=== PATIENT | female | born 1945 | race Caucasian/White ===

== ENCOUNTER 2018-07-12 10:17 | Inpatient (IN) | payer MEDICARE, OTHER ==
[~2018-07-12] VITALS: Ht 162.6 cm; Wt 59.9 kg
[2018-07-12] VITALS (16 sets, daily range): BP systolic 97–133; BP diastolic 39–67
[2018-07-12] MEDS ORDERED: IV NS 0.9% 500 ML BAG IV ONE (10:30)
[2018-07-12] MEDS ORDERED: ONDANSETRON HCL/PF 4 MG/2 ML VIAL IVP ONE (10:30)
[2018-07-12] MEDS ORDERED: MECLIZINE HCL 12.5 MG TABLET PO ONE (10:30)
[2018-07-12] MEDS ORDERED: ONDANSETRON HCL/PF 4 MG/2 ML VIAL ONE (10:36)
[2018-07-12] MEDS ORDERED: MECLIZINE HCL 25 MG TABLET ONE (10:36)
[2018-07-12 11:09] LABS: BASOPHILS % (AUTO) 0.1 % (0.0-2.0); EOSINOPHILS % (AUTO) 0.2 % (0.0-6.0); HEMATOCRIT 42 % (33-45); HEMOGLOBIN 13.6 g/dL (11.5-14.8); LYMPHOCYTES # (AUTO) 0.8 /CMM (0.8-4.8); LYMPHOCYTES % (AUTO) 7.7 % (20.0-44.0); MEAN CORPUSCULAR HEMOGLOBIN 29 PG (26.0-33.0); MEAN CORPUSCULAR HGB CONC 33 g/dl (31.0-36.0); MEAN CORPUSCULAR VOLUME 88 fL (82-100); MONOCYTES # (AUTO) 0.4 /CMM (0.1-1.30); MONOCYTES % (AUTO) 4.1 % (2.0-12.0); NEUTROPHILS # (AUTO) 8.8 /CMM (1.8-8.9); NEUTROPHILS % (AUTO) 87.9 % (43.0-81.0); PLATELET COUNT (AUTO) 246 /CMM (150-450); RDW COEFFICIENT OF VARIATION 14.5 (11.5-15.0); RED BLOOD CELL COUNT(AUTO) 4.78 MIL/uL (4.0-5.2)
[2018-07-12] MEDS ORDERED: LEVETIRACETAM (500MG) 500 MG in IV NS 0.9% 100 ML IV SCH (11:30)
[2018-07-12 11:52] LABS: TROPONIN I < 0.017 ng/mL (0.00-0.056)
[2018-07-12 11:55] LABS: CALCIUM, SERUM 9.5 mg/dL (8.5-10.1); CARBON DIOXIDE 30 mmol/L (21-32); CHLORIDE 94 mmol/L (98-107); CREATININE 0.6 mg/dL (0.6-1.3); GLUCOSE 144 mg/dL (74-106); POTASSIUM 4.1 mmol/L (3.5-5.1); SODIUM SERUM 130 mmol/L (136-145); UREA NITROGEN, BLOOD 11 mg/dL (7-18)
[2018-07-12 11:59] LABS: ALANINE AMINOTRANSFERASE 18 U/L (12-78); ALBUMIN 3.8 g/dL (3.4-5.0); ALKALINE PHOSPHATASE 65 U/L (46-116); ASPARTATE AMINOTRANSFERASE 25 U/L (15-37); BILIRUBIN,DIRECT 0.1 mg/dL (0.0-0.2); BILIRUBIN,TOTAL 0.6 mg/dL (0.2-1.0)
[2018-07-12] MEDS ORDERED: DESMOPRESSIN IV ONE (12:00)
[2018-07-12] MEDS ORDERED: NS 0.9% IV ONE (12:00)
[2018-07-12] MEDS ORDERED: ESOM40CA PO (12:38)
[2018-07-12] MEDS ORDERED: ATEN25TA PO (12:38)
[2018-07-12] MEDS ORDERED: SIMV5TAB6 PO (12:38)
[2018-07-12] MEDS ORDERED: AMLO5TAB2 PO (12:38)
[2018-07-12] MEDS ORDERED: ACETAMINOPHEN 325 MG TABLET PO PRN (13:00)
[2018-07-12] MEDS ORDERED: ONDANSETRON HCL/PF 4 MG/2 ML VIAL IVP PRN (13:00)
[2018-07-12] MEDS ORDERED: MAG HYDROX/AL HYDROX/SIMETH 30 ML UDC PO PRN (13:00)
[2018-07-12] MEDS ORDERED: HYDROCODONE/APAP 5/325MG 1 EACH TABLET PO PRN (13:00)
[2018-07-12] MEDS ORDERED: MAGNESIUM HYDROXIDE 30 ML UDC PO PRN (13:00)
[2018-07-12] MEDS ORDERED: MORPHINE SULFATE INJ 2 MG/ML DISP.SYRIN IV PRN (13:00)
[2018-07-12] MEDS ORDERED: ZOLPIDEM TARTRATE 5 MG TABLET PO PRN (13:00)
[2018-07-12] MEDS ORDERED: Z GUARD REMEDY 2 OZ OINT TP PRN (13:00)
[2018-07-12] MEDS ORDERED: hydrALAZINE HCL IV 20 MG VIAL IV PRN (14:00)
[2018-07-12] MEDS ORDERED: LEVETIRACETAM (500MG) 500 MG/5 ML VIAL IV ONE (23:45)
[2018-07-12] MEDS: LEVETIRACETAM (500MG) 500 MG in IV NS 0.9% 100 ML IV SCH (23:50)
[2018-07-13] VITALS (41 sets, daily range): BP systolic 91–157; BP diastolic 40–100
[2018-07-13 04:25] LABS: BASOPHILS % (AUTO) 0.2 % (0.0-2.0); EOSINOPHILS % (AUTO) 1.2 % (0.0-6.0); HEMATOCRIT 36 % (33-45); HEMOGLOBIN 11.6 g/dL (11.5-14.8); LYMPHOCYTES # (AUTO) 1.4 /CMM (0.8-4.8); LYMPHOCYTES % (AUTO) 11.5 % (20.0-44.0); MEAN CORPUSCULAR HEMOGLOBIN 29 PG (26.0-33.0); MEAN CORPUSCULAR HGB CONC 33 g/dl (31.0-36.0); MEAN CORPUSCULAR VOLUME 88 fL (82-100); MONOCYTES # (AUTO) 0.7 /CMM (0.1-1.30); MONOCYTES % (AUTO) 5.8 % (2.0-12.0); NEUTROPHILS # (AUTO) 9.7 /CMM (1.8-8.9); NEUTROPHILS % (AUTO) 81.3 % (43.0-81.0); PLATELET COUNT (AUTO) 232 /CMM (150-450); RDW COEFFICIENT OF VARIATION 14.2 (11.5-15.0); RED BLOOD CELL COUNT(AUTO) 4.03 MIL/uL (4.0-5.2)
[2018-07-13 04:42] LABS: CARBON DIOXIDE 31 mmol/L (21-32); CHLORIDE 96 mmol/L (98-107); CREATININE 0.7 mg/dL (0.6-1.3); GLUCOSE 97 mg/dL (74-106); MAGNESIUM 1.7 mg/dL (1.8-2.4); PHOSPHORUS 2.7 mg/dL (2.5-4.9); POTASSIUM 3.2 mmol/L (3.5-5.1); SODIUM SERUM 132 mmol/L (136-145); UREA NITROGEN, BLOOD 17 mg/dL (7-18)
[2018-07-13 04:52] LABS: CHOLESTEROL 180 mg/dL (<200); HDL CHOLESTEROL 69 mg/dL (40-60); LDL 94 mg/dL (0-99); THYROID STIMULATING HORMONE 1.378 uIU/mL (0.358-3.74); TRIGLYCERIDES 80 mg/dL (30-150)
[2018-07-13] MEDS: PANTOPRAZOLE 40 MG VIAL IV SCH (09:00)
[2018-07-13] MEDS ORDERED: Magnesium 1GM/D5W 100ML PREMIX 100 ML IV SCH (09:00)
[2018-07-13] MEDS ORDERED: POTASSIUM CHLORIDE 20 MEQ TAB.PRT.SR PO ONE (09:00)
[2018-07-13] MEDS: LEVETIRACETAM (500MG) 500 MG in IV NS 0.9% 100 ML IV SCH (09:00)
[2018-07-13] MEDS ORDERED: MECLIZINE HCL 12.5 MG TABLET PO PRN (09:00)
[2018-07-13] MEDS ORDERED: IOHEXOL-350 100 ML VIAL IV ONE (16:18)
[2018-07-13] MEDS ORDERED: CT SWABBABLE VALVE TRANS SET 1 EA INFUS.SET MC ONE (16:18)
[2018-07-13] MEDS ORDERED: IV NS 0.9% 250 ML IV ONE (16:18)
[2018-07-13] MEDS: LEVETIRACETAM (250 MG) 250 MG TABLET PO SCH (20:41)
[2018-07-14] VITALS: BP 123/59
[2018-07-14 07:35] LABS: CALCIUM, SERUM 8.8 mg/dL (8.5-10.1); CARBON DIOXIDE 28 mmol/L (21-32); CHLORIDE 100 mmol/L (98-107); CREATININE 0.7 mg/dL (0.6-1.3); GLUCOSE 101 mg/dL (74-106); SODIUM SERUM 134 mmol/L (136-145); UREA NITROGEN, BLOOD 15 mg/dL (7-18)
[2018-07-14 07:49] LABS: BASOPHILS % (AUTO) 0.5 % (0.0-2.0); EOSINOPHILS % (AUTO) 3.2 % (0.0-6.0); HEMATOCRIT 39 % (33-45); HEMOGLOBIN 12.7 g/dL (11.5-14.8); LYMPHOCYTES # (AUTO) 1.2 /CMM (0.8-4.8); LYMPHOCYTES % (AUTO) 22.9 % (20.0-44.0); MEAN CORPUSCULAR HEMOGLOBIN 29 PG (26.0-33.0); MEAN CORPUSCULAR HGB CONC 32 g/dl (31.0-36.0); MEAN CORPUSCULAR VOLUME 88 fL (82-100); MONOCYTES # (AUTO) 0.5 /CMM (0.1-1.30); MONOCYTES % (AUTO) 8.7 % (2.0-12.0); NEUTROPHILS # (AUTO) 3.4 /CMM (1.8-8.9); NEUTROPHILS % (AUTO) 64.7 % (43.0-81.0); PLATELET COUNT (AUTO) 213 /CMM (150-450); RDW COEFFICIENT OF VARIATION 14.5 (11.5-15.0); RED BLOOD CELL COUNT(AUTO) 4.46 MIL/uL (4.0-5.2); WHITE BLOOD COUNT (AUTO) 5.2 K/uL (4.3-11.0)
[2018-07-14 08:00] VITALS: BP 123/68
[2018-07-14] MEDS: PANTOPRAZOLE 40 MG VIAL IV SCH (08:47)
[2018-07-14] MEDS: LEVETIRACETAM (250 MG) 250 MG TABLET PO SCH ×2 (08:48→21:12)
[2018-07-14] MEDS: ATENOLOL 25 MG TABLET PO SCH (08:49)
[2018-07-14] MEDS: AMLODIPINE BESYLATE 5 MG TABLET PO SCH (08:50)
[2018-07-14] MEDS ORDERED: LORAZEPAM INJ 2 MG/ML VIAL IV ONE (09:00)
[2018-07-14] MEDS ORDERED: IV NS 0.9% 500 ML IV ONE (09:00)
[2018-07-14 10:00] VITALS: BP 123/68
[2018-07-14 16:00] VITALS: BP 114/64
[2018-07-14 20:00] VITALS: BP 137/68
[2018-07-14] MEDS: MUPIROCIN OINT 2% 22 GM TUBE TP SCH (21:12)
[2018-07-14] MEDS ORDERED: SIMVASTATIN 10 MG TABLET PO SCH (22:00)
[2018-07-15 08:00] VITALS: BP 139/66
[2018-07-15] MEDS: PANTOPRAZOLE 40 MG VIAL IV SCH (08:05)
[2018-07-15] MEDS: AMLODIPINE BESYLATE 5 MG TABLET PO SCH (08:05)
[2018-07-15] MEDS: LEVETIRACETAM (250 MG) 250 MG TABLET PO SCH (08:06)
[2018-07-15 08:07] VITALS: BP 138/66
[2018-07-15] MEDS: ATENOLOL 25 MG TABLET PO SCH (08:07)
[2018-07-15] MEDS: MUPIROCIN OINT 2% 22 GM TUBE TP SCH (09:39)
== END 2018-07-15 15:00 | disposition home or self-care (01) | DRG 65 ==
LOC: ER 10:18 → ICU 12:46 → MED 07-13 16:40 → TELE 07-13 17:26 → MED 07-14 20:15
PROVIDERS: ADMIT Student in an Organized Health Care Education/Training Program; ATTEND Student in an Organized Health Care Education/Training Program
PROC: 05H533Z Insertion of Infusion Device into Right Subclavian Vein, Percutaneous Approach (ICD-10-PCS; principal; 2018-07-13)
PROC: B546ZZA Ultrasonography of Right Subclavian Vein, Guidance (ICD-10-PCS; 2018-07-13)
PROC: 30233R1 Transfusion of Nonautologous Platelets into Peripheral Vein, Percutaneous Approach (ICD-10-PCS; 2018-07-13)
DX: I61.3 Nontraumatic intracerebral hemorrhage in brain stem (principal); E87.1 Hypo-osmolality and hyponatremia; E78.5 Hyperlipidemia, unspecified; K21.9 Gastro-esophageal reflux disease without esophagitis; E87.6 Hypokalemia; E83.42 Hypomagnesemia; I10 Essential (primary) hypertension; R42 Dizziness and giddiness; Z79.82 Long term (current) use of aspirin; E86.1 Hypovolemia
CPT/HCPCS: 36415; 70450-TC; 70496-TC; 71045-TC; 80048-TC; 80061-TC; 80076-TC; 83735-TC; 84100-TC; 84443-TC; 84484-TC; 85025-TC; 86850-TC; 87081-TC; 92521; 97110-TC; 97112-TC; 97116-TC; 97530-TC; A4216; C9113; J1953; J2060; J2405; J2597; J3475; J7030; J7040; J7050; J8597; P9016-BL; P9034-BL; Q9967

== ENCOUNTER 2022-12-25 12:06 | Emergency (ER) | payer MEDICARE, OTHER ==
[~2022-12-25] VITALS: Ht 152.4 cm; Wt 50.3 kg
[~2022-12-25 12:06] MED LIST: AMLO-212 PO; ATEN25TA PO; ESOM40CA PO; SIMV5TAB59 PO
--- NOTE | 2022-12-25 12:09 | NUR ---
TO ER BED 12. BIB RA 86 FROM HOME C/O BODY PAIN S/P SLIP AND FALL 3 DAYS AGO. VITLAS ARE WITHIN NORMAL LIMITS. AWAITING MD ORDERS.
--- NOTE | 2022-12-25 14:00 | NUR ---
Family at bedside. Both updated w/plan of care
[2022-12-25] MEDS ORDERED: ACETAMINOPHEN 325 MG TABLET PO ONE (14:30)
[2022-12-25] MEDS ORDERED: ACETAMINOPHEN 325 MG TABLET ONE (14:44)
--- NOTE | 2022-12-25 14:47 | NUR ---
US tech here
--- NOTE | 2022-12-25 15:24 | NUR ---
PT RETURNED FROM [facility]IA [facility]
--- NOTE | 2022-12-25 15:35 | NUR ---
COVID TEST COLLECTED AND SENT
[2022-12-25] MEDS ORDERED: METO25TA4 PO (15:50)
[2022-12-25] MEDS ORDERED: ROSU10TA29 PO (15:50)
[2022-12-25] MEDS ORDERED: LOSA25TA27 PO (15:50)
[2022-12-25 15:56] LABS: BASOPHILS % (AUTO) 0.4 % (0.0-2.0); EOSINOPHILS % (AUTO) 1.2 % (0.0-6.0); HEMATOCRIT 33 % (33-45); HEMOGLOBIN 10.3 g/dL (11.5-14.8); LYMPHOCYTES # (AUTO) 0.9 K/uL (0.8-4.8); LYMPHOCYTES % (AUTO) 11.8 % (20.0-44.0); MEAN CORPUSCULAR HGB CONC 32 g/dl (31.0-36.0); MEAN CORPUSCULAR VOLUME 81 fL (82-100); MONOCYTES # (AUTO) 0.5 K/uL (0.1-1.30); NEUTROPHILS # (AUTO) 6.1 K/uL (1.8-8.9); NEUTROPHILS % (AUTO) 79.6 % (43.0-81.0); PLATELET COUNT (AUTO) 311 K/uL (150-450); RED BLOOD CELL COUNT(AUTO) 4.04 MIL/uL (4.0-5.2); WHITE BLOOD COUNT (AUTO) 7.7 K/uL (4.3-11.0)
[2022-12-25 16:07] LABS: CALCIUM, SERUM 9.2 mg/dL (8.5-10.1); CREATININE 0.9 mg/dL (0.6-1.3); POTASSIUM 3.8 mmol/L (3.5-5.1)
[2022-12-25 16:12] LABS: ALBUMIN 2.9 g/dL (3.4-5.0); BILIRUBIN,DIRECT 0.1 mg/dL (0.0-0.2); BILIRUBIN,TOTAL 0.3 mg/dL (0.2-1.0); TOTAL PROTEIN, SERUM 6.5 g/dL (6.4-8.2)
--- NOTE | 2022-12-25 16:12 | NUR ---
DR. KING SPEAKING TO DR. MILLER
--- NOTE | 2022-12-25 16:12 | NUR ---
SENT PT'S CT TO DR. MILLER
--- NOTE | 2022-12-25 17:56 | NUR ---
[facility] WAS NOTIFIED BY ROSIBEL THAT THE H[facility] IS CURRENTLY AT CAPACITY
--- NOTE | 2022-12-25 18:00 | NUR ---
KAYLEN [phone]
--- NOTE | 2022-12-25 18:48 | NUR ---
CALLED [facility] AND SET UP S TRANSPORT HOME ETA 1999
[2022-12-25] MEDS ORDERED: ACET325C7 PO (19:13)
--- NOTE | 2022-12-25 19:49 | NUR ---
PT FOR DISCHARGE. WAITING FOR TRANSPORTATION
--- NOTE | 2022-12-25 20:10 | NUR ---
IV JUVE REMOVED
--- NOTE | 2022-12-25 21:12 | NUR ---
Patient discharged to home in stable condition. Written and verbal after care instructions given. Patient verbalizes understanding of instruction.
[2022-12-25 21:48] VITALS: BP 124/63
== END 2022-12-25 21:48 | disposition home or self-care (01) ==
LOC: ER 12:16
DX: S22.030A Wedge compression fracture of third thoracic vertebra, initial encounter for closed fracture (principal); S22.080A Wedge compression fracture of T11-T12 vertebra, initial encounter for closed fracture; S90.02XA Contusion of left ankle, initial encounter; R10.2 Pelvic and perineal pain; R51.9 Headache, unspecified; I10 Essential (primary) hypertension; E78.00 Pure hypercholesterolemia, unspecified; E78.5 Hyperlipidemia, unspecified; K21.9 Gastro-esophageal reflux disease without esophagitis; Z20.822 Contact with and (suspected) exposure to COVID-19; W01.0XXA Fall on same level from slipping, tripping and stumbling without subsequent striking against object, initial encounter; Y93.89 Activity, other specified; Y92.89 Other specified places as the place of occurrence of the external cause; Y99.8 Other external cause status
CPT/HCPCS: 36415; 70450-TC; 71111-TC; 71250-TC; 72125-TC; 72131-TC; 72192-TC; 73030-TC; 73590-TC; 73610-TC; 73630-TC; 80048-TC; 80076-TC; 85025-TC; 85730-TC; 93971-TC; C9803